=== PATIENT | female | born 1985 | race Caucasian/White ===

== ENCOUNTER → 2021-01-22 15:28 | Outpatient (CLI) | payer OTHER, SELFPAY ==
[2021-01-22 16:51] LABS: Add Manual Diff / Slide Review NO; Basophils Absolute Auto 0 /uL (0-100); Basophils Percent Auto 0.4 % (0-2); Eosinophils Absolute Auto 200 /uL (0-450); Eosinophils Percent Auto 1.9 % (2-4); Hematocrit 35.1 % (36-46); Lymphocytes Absolute Auto 2700 /uL (1100-4500); Lymphocytes Percent Auto 30.6 % (25-40); Mean Corpuscular HGB Conc 34.2 % (30-36); Mean Corpuscular Hemoglobin 30.2 PG (26-34); Mean Corpuscular Volume 88.4 fL (80-100); Monocytes Absolute Auto 600 /uL (0-900); Monocytes Percent Auto 6.6 % (3-14); Neutrophils Absolute Auto 5300 /uL (1500-7000); Neutrophils Percent Auto 60.5 % (50-75); Platelet Count 210 X10^3/uL (150-400); Red Blood Cell Count 3.97 X10^6/uL (4.0-5.2); Red Cell Distribution Width 12.9 % (11.6-14.8); White Blood Cell Count 8.8 X10^3/uL (4.5-11.0)
[2021-01-22 17:00] LABS: Appearance Urine UA CLEAR; Bilirubin Urine UA NEGATIVE (NEGATIVE); Color Urine UA YELLOW; Glucose Urine UA NEGATIVE (Negative); Ketones Urine UA NEGATIVE (NEGATIVE); Leukocyte Esterase Urine UA NEGATIVE (NEGATIVE); Nitrite Urine UA NEGATIVE (Negative); Occult Blood Urine UA NEGATIVE (Negative); Protein Urine UA NEGATIVE (Negative); Urobilinogen Urine UA 0.2 E.U./dL (0.2)
[2021-01-22 17:05] LABS: pH Urine UA 6.5 (4.5-8.0)
[2021-01-22 17:21] LABS: Hemoglobin A1C% w Est Avg Glu 5.2 % (4.0-6.0)
[2021-01-23 06:39] LABS: RPR Screen Non Reactive (Non Reactive)
[2021-01-23 12:36] LABS: Varicella IgG Antibody 1234 index (Immune >165)
[2021-01-24 15:57] LABS: Hepatitis B Surface Antigen NEGATIVE s/c (NEGATIVE); Rubella Antibody IgG 24.9 IU/mL (>15)
[2021-01-24 16:14] LABS: HIV 1 & 2 Ab/Ag 4th Gen Combo NEGATIVE (NEGATIVE); Hep C Virus Ab w/Reflex Quant NEGATIVE s/c (NEGATIVE)
== END ==
PROVIDERS: Referring Provider Obstetrics & Gynecology; Visit Provider Obstetrics & Gynecology
DX: Z34.81 Encounter for supervision of other normal pregnancy, first trimester (principal); Z86.32 Personal history of gestational diabetes
CPT/HCPCS: 36415; 80055; 81003; 83036; 86787; 86803; 86850; 86900; 86901; 87086; 87389

== ENCOUNTER → 2021-03-08 11:01 | Outpatient (CLI) | payer OTHER, SELFPAY ==
[2021-03-08 12:31] LABS: Add Manual Diff / Slide Review NO; Aspartate Aminotransferase 24 IU/L (14-36); Basophils Absolute Auto 0 /uL (0-100); Basophils Percent Auto 0.7 % (0-2); Eosinophils Absolute Auto 100 /uL (0-450); Eosinophils Percent Auto 1.9 % (2-4); Estimated Glomerular Filt Rate > 60.0 mL/min (>60); Hematocrit 32.8 % (36-46); Hemoglobin 11.5 g/dL (12.0-16.0); Lactate Dehydrogenase 418 U/L (313-618); Lymphocytes Absolute Auto 2400 /uL (1100-4500); Lymphocytes Percent Auto 37.2 % (25-40); Mean Corpuscular Hemoglobin 30.9 PG (26-34); Mean Corpuscular Volume 88.3 fL (80-100); Monocytes Absolute Auto 500 /uL (0-900); Monocytes Percent Auto 8.1 % (3-14); Neutrophils Absolute Auto 3400 /uL (1500-7000); Neutrophils Percent Auto 52.1 % (50-75); Platelet Count 181 X10^3/uL (150-400); Red Blood Cell Count 3.72 X10^6/uL (4.0-5.2); Uric Acid 2.5 mg/dL (2.5-6.2); White Blood Cell Count 6.5 X10^3/uL (4.5-11.0)
[2021-03-08 16:43] LABS: Protein (Total) Urine Random 13 mg/dL (0-12); Protein Creatinine Ratio Urine 0.61 GRAM/24H
[2021-03-11 23:27] LABS: AFP, Serum 43.9 ng/mL (.); Calc Gestational Age Ultrasound (.); Estriol, Free 1.33 ng/mL (.); Inhibin A, MoM See interpretation. (.); Maternal Ethnicity Caucasian (.); Maternal Weight 145 lbs (.); Number of Fetuses No (.); OSBR Risk 1 IN 10000 (.); Results Report (.); Test Results See interpretation. (.); hCG, MoM See interpretation. (.); hCG, Serum 31928 mIU/mL (.)
== END ==
PROVIDERS: Referring Provider Obstetrics & Gynecology; Visit Provider Obstetrics & Gynecology
DX: Z34.82 Encounter for supervision of other normal pregnancy, second trimester (principal); Z87.59 Personal history of other complications of pregnancy, childbirth and the puerperium; Z3A.16 16 weeks gestation of pregnancy
CPT/HCPCS: 36415; 82105; 82565; 82570; 82677; 83615; 84156; 84450; 84550; 84702; 85025; 86336

== ENCOUNTER → 2021-04-16 10:24 | Outpatient (CLI) | payer OTHER, SELFPAY ==
--- NOTE | 2021-04-16 10:25 | DI.US.S_ITS ---
PROCEDURE: US OB >= 14 WEEKS FETUS INDICATIONS: ANATOMY OUTSIDE/PRIOR DATING DATA: First dating scan (date and location): 01/22/2021. Estimated date of delivery (WENDY) from first dating scan: 08/18/2021. The calculations are made using the ultrasound WENDY of 08/18/2021. TECHNIQUE: Real-time scanning was performed of the fetus, with image documentation and biometric measurements. COMPARISON: [facility], , OB <= 14 WEEKS FETUS, 01/22/2021, 16:14. [facility], , US OB <= 14 WEEKS FETUS, 02/21/2021, 15:21. FINDINGS: General: A single living intrauterine gestation is present. Presentation: Vertex. Placenta: Placental position is posterior , without previa. Amniotic fluid index: 13.9 cm, normal range is 5-24 cm. heart rate: 147 beats per minute. Maternal cervical canal: 5.3 cm long. Normal lower limit is 2.5 cm. biometrics: Biparietal diameter: 22 weeks Head circumference: 22 weeks Abdominal circumference: 21 weeks 4 days Femur length: 21 weeks 2 days Clinically estimated gestational age: 22 weeks 2 days Composite gestational age from present scan: 21 weeks 5 days Estimated weight and percentile: 432 g; 14 percentile Anatomic survey: Neuro: Ventricles are non-dilated at less than 10 mm. Cisterna magna is normal at 3-11 mm. Cerebellum is normal in size and morphology. Possible lemon sign of the skull which has a slight appearance of and indentation along the frontal bones Nuchal skin fold: Normal at less than 6 mm between 14-21 weeks gestational age. Face: Nose and lips, facial profile are normal. Spine: No evidence for spina bifida. Heart: 4-chambered heart is present, with normal ventricular outflow tracts. Diaphragm: Diaphragm is intact. Stomach: Left-sided stomach is present. Kidneys: No hydronephrosis. Normal is less than 5 mm in 2nd trimester, less than 7 mm in 3rd trimester. Cord: 3-vessel cord has orthotopic insertion. Bladder: Normal in size. Extremities: All 4 extremities identified. IMPRESSION: 1. Single living IUP redemonstrated and interval growth is lower limits of normal. 2. Possible lemon sign of the skull, which is associated with congenital anomaly such as Chiari malformation or spina bifida which are not present. Recommend a short-term follow-up examination. 3. Anatomic survey otherwise is normal. We strive to produce accurate, complete, and clear reports of imaging services. To assist us in improving patient care, this report was composed using standard report templates and voice recognition software. Therefore, it may contain abnormal punctuation, insertions and/or omissions. Occasional wrong-word or sound-alike substitutions may occur. Though we review the report and make efforts to correct it, we do recommend that the report be read carefully in proper context to recognize any text inaccuracies. Dictated by: Aron Jeronimo [facility] Interpreted: Fanny Vincent MD on 04/16/2021 at 11:31 Transcribed by: DELANEY on 04/16/2021 at 11:40 Approved by: Fanny Vincent M.D. on 04/16/2021 at 12:09
== END ==
PROVIDERS: Referring Provider Obstetrics & Gynecology; Visit Provider Obstetrics & Gynecology
DX: Z34.82 Encounter for supervision of other normal pregnancy, second trimester (principal); Z3A.21 21 weeks gestation of pregnancy
CPT/HCPCS: 76811

== ENCOUNTER → 2021-05-09 10:52 | Outpatient (CLI) | payer OTHER, SELFPAY ==
[2021-05-09 12:53] LABS: Hematocrit 32.4 % (36-46); Hemoglobin 11.3 g/dL (12.0-16.0)
[2021-05-09 13:31] LABS: GTT (PREG) 1 Hour PP 50gm Dose 180 mg/dL (76-139)
== END ==
PROVIDERS: Referring Provider Obstetrics & Gynecology; Visit Provider Obstetrics & Gynecology
DX: Z34.82 Encounter for supervision of other normal pregnancy, second trimester (principal); Z3A.25 25 weeks gestation of pregnancy
CPT/HCPCS: 36415; 82950; 85014; 85018; 86850

== ENCOUNTER → 2021-05-15 10:07 | Outpatient (CLI) | payer OTHER, SELFPAY ==
[2021-05-15 11:09] LABS: Collection Time Urine 24 Hours; Protein (Total) Urine Random 13 mg/dL (0-12); Total Protein 24 Hour Urine 728 mg/day (42-225); Total Volume Urine 5600 mL
== END ==
PROVIDERS: Referring Provider Obstetrics & Gynecology; Visit Provider Obstetrics & Gynecology
DX: Z87.59 Personal history of other complications of pregnancy, childbirth and the puerperium (principal)
CPT/HCPCS: 84156

== ENCOUNTER → 2021-07-30 17:26 | Outpatient (CLI) | payer OTHER, SELFPAY ==
[2021-07-31 13:53] LABS: Strep Grp B PCR NEG for Grp B Strep
== END ==
PROVIDERS: Visit Provider Obstetrics & Gynecology
DX: Z36.85 Encounter for antenatal screening for Streptococcus B (principal); Z3A.37 37 weeks gestation of pregnancy
CPT/HCPCS: 87653

== ENCOUNTER 2021-08-09 19:32 | Inpatient (IN) | payer OTHER, SELFPAY ==
[2021-08-09 20:25] LABS: Add Manual Diff / Slide Review NO; Basophils Absolute Auto 0 /uL (0-100); Basophils Percent Auto 0.6 % (0-2); Eosinophils Absolute Auto 100 /uL (0-450); Eosinophils Percent Auto 0.7 % (2-4); Hematocrit 34.5 % (36-46); Hemoglobin 12.1 g/dL (12.0-16.0); Lymphocytes Absolute Auto 1600 /uL (1100-4500); Lymphocytes Percent Auto 21.1 % (25-40); Mean Corpuscular HGB Conc 35.2 % (30-36); Mean Corpuscular Volume 88.2 fL (80-100); Monocytes Absolute Auto 600 /uL (0-900); Neutrophils Absolute Auto 5400 /uL (1500-7000); Neutrophils Percent Auto 69.6 % (50-75); Platelet Count 124 X10^3/uL (150-400); Red Blood Cell Count 3.91 X10^6/uL (4.0-5.2); White Blood Cell Count 7.7 X10^3/uL (4.5-11.0)
[2021-08-09] MEDS: LACTATED RINGERS 1,000 ML 100 ML IV (21:00)
[2021-08-09] MEDS: OXYTOCIN PREMIX 30 UNIT/500 ML PLAST..BAG IV (21:02)
--- NOTE | 2021-08-09 21:03 | PM.OBHP.1 ---
OB HPI Date/Time Date of admission: 08/09/21 Date Patient Seen: 08/09/21 Time Patient Seen: 21:03 History of Present Condition Chief complaint: Induction : 6 Para: 2 Estimated Date of Delivery: 08/18/21 Estimated Gestational Age (weeks): 38 Narrative: Marie Saldivar is a 35 year old female admitted for induction for history of rapid labor Indications Indication for induction OB: gestational HTN/pre-eclampsia, gestational diabetes and history of rapid labor History of Present care: good care, initiated at week # (10), number of visits (9) and pounds weight gain (37) Dating criteria: LMP confirmed by 1st trimester US Ultrasounds: abnormal US findings Abnormal ultrasound findings: Possible lemon sign, follow-up by Maternal Medicine no cranial abnormalities Obstetrical complications: gestational diabetes (Diet-controlled) and gestational hypertension Medical complications: none Preadmission Labs Blood type: B (-) negative -: Antibody screen: negative, GBS status: negative, HBsAG: negative, HIV: negative and RPR/VDLR: negative -: Chlamydia screen: not detected and Gonorrhea screen: not detected -: Rubella: immune and Varicella: immune HCAB: negative Quad screen: Normal 1 hr GTT: 180 Narrative: Patient unable to do 3 hour glucose tolerance test monitored blood sugars without need for insulin Prior (ies) History: 12/30/15 39 12 6 lb 5 oz [facility] - full [place], [place] 20 mos. pre-eclampsia gestational diabetesBanks 01/05/18 37.5 8 6 lb 8 oz [facility] full [facility] 30 mos. gestational diabetes pre-eclampsiaDrew Evaluation Evaluation Baseline heart rate: 140 Variability: Moderate (11-25) monitor accelerations: Present Monitor Decelerations: Absent Category of Tracing: Reactive Status: Category l Dilation (cm): 3 Effacement (%): 80 station: -2 [facility] Medical History (Updated 08/06/21 @ 11:24 by Abigail Stewart MD) Anxiety (~2011) History of palpitations (~2015) History of pre-eclampsia History of recurrent miscarriages (~2015) Lipoma of flank (~2017) OCD (obsessive compulsive disorder) (~2011) Positive GBS test Pre-eclampsia (~2015) Surgical History (Updated 01/21/21 @ 23:07 by Margie Lawson) History of ear surgery (~2001) [place] teeth extracted Family History (Updated 01/18/21 @ 12:51 by Breanna Dodson RN) Mother Breast cancer Father Hypertension Anemia Grandmother No problems noted. Grandfather Mitral valve disease, rheumatic Grandmother Hypertension TIA (transient ischemic attack) Grandfather Diabetes mellitus Complication of cardiac bypass Hypertension Hyperlipidemia Sister Wilms' tumor Social History marital status: number of children: 2 household members: spouse and children lives independently: Yes caregiver/support person: No housing: house pets and animals: Yes (1 dog.) education level: college (Bachelors in Nursing.) occupational status: employed ([employer] current occupational exposures/hazards: No special aimee needs: No seatbelt use: always do you feel safe at home: Yes Smoking Status: Never smoker second hand exposure: No alcohol intake: never (Pr) substance use type: does not use during the past year weight has: remained stable well-balanced diet: daily or most days daily servings fruits/ve-4 caffeine: No (Quit w . (used to drink Diet Coke)) Type(s) of exercise: walking and running frequency: daily (less now that she is feeling sick. ) duration: 30-45 minutes/day Meds Home Medications and Allergies Home Medications Medication Instructions Recorded Confirmed Type magnesium 250 mg tablet 350 mg PO DAILY tab 01/18/21 08/06/21 History prenat.vits,marry,[id number] 1 tab PO DAILY 01/18/21 08/06/21 History pyridoxine (vitamin B6) 50 mg 50 mg PO BID 01/18/21 08/06/21 History tablet progesterone micronized 100 mg 100 mg VAGINAL TID #84 cap 01/28/21 08/06/21 Rx capsule fluconazole 150 mg tablet 150 mg PO ONCE #1 tab 02/21/21 08/06/21 Rx (Diflucan) sertraline 100 mg tablet 100 mg PO DAILY #30 tab 06/03/21 08/06/21 Rx Allergies Allergy/AdvReac Type Severity Reaction Status Date / Time Latex, Natural Rubber Allergy Mild Red, itchy Verified 08/06/21 11:05 skin rash Review of Systems Review of Systems Narrative: Good movement. No leakage of fluid. No vaginal bleeding. No headaches, scotomata, epigastric pain. OB Exam Narrative Exam Narrative: HEENT exam within normal limits. Lungs are clear to auscultation percussion. Heart is regular rate and rhythm no S3-S4 murmurs. Abdomen is gravid. Fetus is vertex. Extremities without edema and nontender. Objective Labs Result Diagrams: 08/09/21 20:05 Labs: Laboratory Results - last 24 hr 08/09/21 20:05 WBC 7.7 RBC 3.91 L Hgb 12.1 Hct 34.5 L MCV 88.2 MCH 31.0 MCHC 35.2 RDW 13.0 Plt Count 124 L Neut % (Auto) 69.6 Lymph % (Auto) 21.1 L [place] % (Auto) 8.0 Eos % (Auto) 0.7 L Baso % (Auto) 0.6 Neut # (Auto) 5400 Lymph # (Auto) 1600 [place] # (Auto) 600 Eos # (Auto) 100 Baso # (Auto) 0 Assessment and Plan Assessment and Plan Assessment and Plan narrative: Patient admitted for induction for history of fast labors, gestational diabetes, gestational hypertension Time Spent with Patient Total time spent with greater than 50% in coordination of care (as documented) at patient's floor/unit and/or counseling patient:: less than 15 minutes
[2021-08-09 21:09] LABS: COVID19 -Nasal RAPID Negative (Negative)
[2021-08-09 21:53] VITALS: BP 131/79
[2021-08-10] MEDS: LACTATED RINGERS 1,000 ML 100 ML IV (00:42)
[2021-08-10] MEDS: FENT 2MCG/ML BUPIV 0.125% EPI 200 MCG/100 ML PLAST..BAG 6 MCG EPIDURAL (01:00)
--- NOTE | 2021-08-10 01:10 | PM.AN.REGBLK ---
Regional Block Pre-procedure Procedure: Continuous Lumbar Epidural for L&D Attending OB provider: Abigail Stewart PMH/ROS narrative: term induction, no complications. Hx of preeclampsia with previous. ASA Class: II Labs: Hct 34.5 % (36-46) L 08/09/21 20:05 Plt Count 124 X10^3/uL (150-400) L 08/09/21 20:05 Medications: Current Medications Generic Name Dose Route Start Last Admin Trade Name Freq PRN Reason Stop Dose Admin Calcium Carbonate 1,000 mg 08/09/21 19:40 Calcium Carbonate 500 Mg Tab PO Q2HR PRN Dyspepsia Carboprost Tromethamine 250 mcg 08/09/21 19:40 Carboprost 250 Mcg/Ml Ampul IM Q90M PRN Bleeding Diphenhydramine HCl 25 mg 08/10/21 00:41 Diphenhydramine 50 Mg/Ml Vial IV Q10M PRN Pruritis Fentanyl 100 mcg 08/09/21 19:40 Fentanyl 100 Mcg/2 Ml Inj IV Q1H PRN Pain, Severe (7-10) Lactated Ringer's 1,000 mls @ 100 mls/hr 08/09/21 19:45 08/10/21 00:42 Lactated Ringers IV 100 mls/hr CONT DEONDRE Administration Oxytocin/Lactated Ringer's 30 unit in 500 mls @ 200 mls/hr 08/09/21 19:40 Oxytocin Premix IV CONT PRN Bleeding Protocol Oxytocin/Lactated Ringer's 30 unit in 500 mls @ 3 mls/hr 08/09/21 19:45 08/09/21 21:02 Oxytocin Premix IV 3 milliunit/min TITRATE DEONDRE 3 mls/hr Administration Protocol 3 MILLIUNIT/MIN Tranexamic Acid 1,000 mg/ 100 mls @ 200 mls/hr 08/09/21 19:40 Sodium Chloride IV NOW PRN Bleeding FENT 2MCG/ML BUPIV 0.125% EPI 200 mcg in 100 mls @ 6 mls/hr 08/10/21 00:45 Fentanyl/Bupiv/Ns 2mcg/Ml - 0.125% EPIDURAL CONT DEONDRE Methylergonovine Maleate 0.2 mg 08/09/21 19:40 Methylergonovine 0.2 Mg Tablet PO Q6HR PRN Heavy Bleeding Methylergonovine Maleate 0.2 mg 08/09/21 19:40 Methylergonovine 0.2 Mg/Ml Vial IM NOW PRN Bleeding Metoclopramide HCl 10 mg 08/09/21 19:40 Metoclopramide 10 Mg/2 Ml Inj IV NOW PRN Nausea And Vomiting Misoprostol 1,000 mcg 08/09/21 19:40 Misoprostol 200 Mcg Tablet MI NOW PRN Bleeding Misoprostol 400 mcg 08/09/21 19:40 Misoprostol 200 Mcg Tablet SL NOW PRN Bleeding Misoprostol 800 mcg 08/09/21 19:40 Misoprostol 200 Mcg Tablet MI NOW PRN Bleeding Nalbuphine HCl 2.5 mg 08/10/21 00:41 Nalbuphine 20 Mg/Ml Ampul IV Q10M PRN Pruritis Naloxone HCl 0.2 mg 08/09/21 19:40 Naloxone 0.4 Mg/Ml Vial IV Q2MIN PRN Opiate Reversal Ondansetron HCl 4 mg 08/09/21 19:40 Ondansetron 4 Mg/2 Ml Inj IV Q4HR PRN Nausea And Vomiting Oxytocin 10 unit 08/09/21 19:40 Oxytocin 10 Unit/Ml Vial IM NOW PRN Bleeding Sertraline HCl 100 mg 08/10/21 09:00 Sertraline 50 Mg Tablet PO 08/10/21 09:01 BEDTIME ONE Allergies: Allergies Allergy/AdvReac Type Severity Reaction Status Date / Time Latex, Natural Rubber Allergy Mild Red, itchy Verified 08/06/21 11:05 skin rash Procedure Insertion date: 08/10/21 Insertion time: 00:55 Prep/Local: betadine x3 and 1% lidocaine Interspace: L3-4 Patient position: sitting Needle: 18 gauge Hustead (CSE: 27g Pencan through Hustead, clear CSF, 0.5mL 0.25% bupiv (lower dose d/t h/o hypotension with previous CSE)) Loss of resistance with: saline ALTAGRACIA at (cm): 5 Catheter placed at SKIN (cm): 10 Catheter in SPACE (cm): 5 Insertion: No CSF, No Blood, No Paresthesia with insertion, No Paresthesia with injection and No Test dose reaction Initial Medications TEST DOSE time: 00:57 TEST DOSE: 1.5% lidocaine with epinephrine 1:200k (mL): 3 BOLUS DOSE time: 01:13 BOLUS DOSE (mL): 5 BOLUS DOSE med: other (infusate) Infusion INFUSION: 0.125% bupivacaine and with fentanyl 2 mcg/mL Initial rate (mL/hr): 8 Subsequent interventions: Post-procedure Anesthesia time START: 00:46 Anesthesia time END: 06:19 Post-procedure Anesthesia Assessment: Yes CV function: HR/BP stable, Yes Resp function: RR/sat/airway adequate, Yes Mental status appropriate and No Anesthesia complications
--- NOTE | 2021-08-10 06:47 | PM.OBPRVD ---
Labor & Delivery Delivery date: 08/10/21 Intrapartal Events: None Induction method: per pitocin protocol Delivery monitor: external FHT and external uterine Route of delivery: L&D Laceration Description: Perineal - 1st Degree Delivery repair: chromic (3 0) Estimated blood loss (mL): 100 Anesthesia Type: Epidural Narrative: Patient arrived on Labor and delivery for induction for history of fast labor, diet-controlled gestational diabetes, gestational hypertension. She was begun on Pitocin. She received an epidural catheter for pain control. She had spontaneous rupture membranes for clear fluid. She delivered spontaneously, over an intact perineum a viable male infant was placed on maternal abdomen. Baby had a tight nuchal cord. After 1 minute the cord was clamped, cut, and cord bloods obtained. The placenta delivered spontaneously, intact, with 3 vessels. There were no cervical or vaginal tears. A midline first-degree perineal tear was repaired with 3 0 chromic suture. Estimated blood loss 100 cc. Both infant mother doing well. Baby 1: Infant gender: Male Presentation: vertex Position: Right Occiput Anterior Placenta delivery description: Spontaneous Cord Vessel Description: 3 Vessels, Nuchal Cord and Tight score (1 min): 8 score (5 min): 9 Plan for aftercare: Routine care
[2021-08-10] MEDS: LANOLIN OINT 7 GM 1 APPLIC TOP (10:40)
[2021-08-10] MEDS: ACETAMINOPHEN 325 MG TABLET 650 MG PO (10:43)
[2021-08-10] MEDS: IBUPROFEN 600 MG TABLET PO (10:43)
[2021-08-10] MEDS: SERTRALINE 50 MG TABLET 100 MG PO (10:48)
[2021-08-10] MEDS: RHO(D) IMMUNE GLOBULIN 1,500 UNIT SYRINGE 1500 UNIT IM (15:42)
--- NOTE | 2021-08-10 17:39 | PM.OBDS.1 ---
Discharge Providers Provider Date of admission: 08/09/21 19:32 Discharge Date: 08/10/21 Primary care physician: Doctor Clay MD Consults: 08/11/21 06:45 Consult to Fire Regulator Routine Comment: Discharge provider: Fariba Morgan MD Summary Hospital Course Date Patient Seen: 08/10/21 Time Patient Seen: 17:39 Diagnoses: Vaginal delivery Hospital Course: Patient was admitted to Labor and delivery for induction for history of fast labors, gestational diabetes, diet controlled, hypertension. She was started on Pitocin. She was given an epidural for pain control. She had a spontaneous vaginal delivery of a viable male . She feels comfortable with . She is urinating and ambulating well. She denies any headaches, scotomata, epigastric pain. Peripartum Data Laceration Description: Perineal - 1st Degree Procedures: Pitocin induction, epidural catheter, spontaneous vaginal delivery with repair of first-degree perineal tear complications: none [place] 1: Gender: Male Disposition of : home Discharge Diagnosis (1) Vaginal delivery: Status: Acute Status at Discharge Cognitive/behavioral status at discharge: oriented Functional status at discharge: independent ambulation Overall status at discharge: patient is progressing back to baseline Time Spent with Patient Time attestation: Total time spent providing and/or coordinating discharge services: Time spent: Less than 30 minutes Objective Labs Result Diagrams: 08/09/21 20:05 Labs: Laboratory Results - last 24 hr 08/09/21 08/09/21 08/09/21 20:05 20:05 20:05 WBC 7.7 RBC 3.91 L Hgb 12.1 Hct 34.5 L MCV 88.2 MCH 31.0 MCHC 35.2 RDW 13.0 Plt Count 124 L Neut % (Auto) 69.6 Lymph % (Auto) 21.1 L [place] % (Auto) 8.0 Eos % (Auto) 0.7 L Baso % (Auto) 0.6 Neut # (Auto) 5400 Lymph # (Auto) 1600 [place] # (Auto) 600 Eos # (Auto) 100 Baso # (Auto) 0 SARS-CoV-2 (PCR) Negative Blood Type B Negative Antibody Screen Negative Exam Vital Signs (past 8 hours): Blood pressure 120/69, pulse 72, temperature 99.4 Narrative Exam Narrative: Abdomen is soft, nontender. Uterus is firm, at U, nontender. Mild lochia. Extremities without edema and nontender. Patient is Rh negative and baby Rh positive, she did receive RhoGAM. She is rubella immune, she received Tdap in the 3rd trimester. Discharge Plan Discharge Plan Patient Disposition: Home Discharge orders & Medications Prescriptions: Continued sertraline 100 mg tablet 100 mg PO DAILY Qty: 30 5RF magnesium 250 mg tablet 350 mg PO DAILY 0RF Label Comments: Actually takes Magnesium CALM powder, 350 mg in water, BID. prenat.vits,marry,[id number] Tablet 1 tab PO DAILY 0RF Discontinued progesterone micronized 100 mg capsule 100 mg vaginal TID Qty: 84 2RF pyridoxine (vitamin B6) 50 mg tablet 50 mg PO BID 0RF fluconazole [Diflucan] 150 mg tablet 150 mg PO ONCE Qty: 1 2RF Rx Instructions: as a single dose Follow up/Referrals: Fariba Morgan MD [Physician] - Abigail Stewart MD [Physician] - 6 Weeks Doctor Williamson MD [Primary Care Provider] - Diet/Activity/Treatments Diet: Regular Activity: Vagina for 6 weeks Skin/Wound/Dressing Care Report to your healthcare provider any signs of infection, such as:: chills, fever and increased pain Discharge Data Primary Care Provider: Doctor Clay Attending Provider: Fariba Morgan
== END 2021-08-10 19:05 | disposition home or self-care (01) | DRG 807 ==
PROVIDERS: Obstetrics & Gynecology; Admitting Provider Specialist; Referring Provider Specialist; Visit Provider Specialist
DX: O24.420 Gestational diabetes mellitus in childbirth, diet controlled (principal); Z37.0 Single live birth; Z3A.38 38 weeks gestation of pregnancy; O13.4 Gestational [pregnancy-induced] hypertension without significant proteinuria, complicating childbirth; O70.0 First degree perineal laceration during delivery; O69.81X0 Labor and delivery complicated by cord around neck, without compression, not applicable or unspecified; Z20.822 Contact with and (suspected) exposure to COVID-19
CPT/HCPCS: 01967; 36415; 59050; 59400; 59409; 85025; 86850; 86900; 86901; 87635; C9803; G0378; G0379; J2590; J2790

== ENCOUNTER → 2023-02-06 12:31 | Outpatient (CLI) | payer OTHER, SELFPAY ==
[2023-02-06 13:56] LABS: HCG Quantitative /Beta subunit 471.1 mIU/mL
== END ==
PROVIDERS: PCP Obstetrics & Gynecology; Referring Provider Obstetrics & Gynecology; Visit Provider Obstetrics & Gynecology
DX: N96 Recurrent pregnancy loss (principal)
CPT/HCPCS: 36415; 84702

== ENCOUNTER → 2023-02-09 11:01 | Outpatient (CLI) | payer OTHER, SELFPAY ==
[2023-02-09 13:44] LABS: HCG Quantitative /Beta subunit 1524.4 mIU/mL
== END ==
PROVIDERS: Referring Provider Obstetrics & Gynecology; Visit Provider Obstetrics & Gynecology
DX: N96 Recurrent pregnancy loss (principal)
CPT/HCPCS: 36415; 84702

== ENCOUNTER → 2023-03-19 11:15 | Outpatient (CLI) | payer OTHER, SELFPAY ==
[2023-03-19 12:28] LABS: Miscellaneous to LabCorp NATERA KIT
[2023-03-19 12:47] LABS: Add Manual Diff / Slide Review NO; Basophils Absolute Auto 100 /uL (0-100); Basophils Percent Auto 0.8 % (0-2); Eosinophils Absolute Auto 100 /uL (0-450); Eosinophils Percent Auto 1.8 % (2-4); Hematocrit 35.7 % (36-46); Hemoglobin 12.3 g/dL (12.0-16.0); Lymphocytes Absolute Auto 2600 /uL (1100-4500); Mean Corpuscular HGB Conc 34.4 % (30-36); Mean Corpuscular Hemoglobin 30.4 PG (26-34); Mean Corpuscular Volume 88.5 fL (80-100); Monocytes Absolute Auto 500 /uL (0-900); Monocytes Percent Auto 7.7 % (3-14); Neutrophils Absolute Auto 3700 /uL (1500-7000); Neutrophils Percent Auto 52.7 % (50-75); Platelet Count 214 X10^3/uL (150-400); Red Blood Cell Count 4.03 X10^6/uL (4.0-5.2); Red Cell Distribution Width 12.9 % (11.6-14.8); White Blood Cell Count 6.9 X10^3/uL (4.5-11.0)
[2023-03-19 12:54] LABS: Hemoglobin A1C% w Est Avg Glu 5.5 % (4.0-6.0)
[2023-03-19 13:10] LABS: Alanine Aminotransferase 17 IU/L (<35); Aspartate Aminotransferase 26 IU/L (14-36); BUN Creatinine Ratio 12.8 (6-22); Blood Urea Nitrogen 6 mg/dL (7-17); Estimated Glomerular Filt Rate > 60 mL/min (>60); Uric Acid 2.4 mg/dL (2.5-6.2)
[2023-03-19 23:04] LABS: Urine N gonorrhoeae NOT DETECTED
[2023-03-19 23:06] LABS: Urine Chlamydia NOT DETECTED
[2023-03-20 10:22] LABS: RPR Screen Non Reactive (Non Reactive)
[2023-03-21 11:03] LABS: Varicella IgG Antibody 1179 index (Immune >165)
[2023-03-23 16:30] LABS: Hepatitis B Surface Antigen NEGATIVE s/c (NEGATIVE); Rubella Antibody IgG 22.4 IU/mL (>15)
[2023-03-23 16:51] LABS: HIV 1 & 2 Ab/Ag 4th Gen Combo NEGATIVE (NEGATIVE); Hep C Virus Ab w/Reflex Quant NEGATIVE s/c (NEGATIVE)
== END ==
PROVIDERS: PCP Family Medicine; Referring Provider Obstetrics & Gynecology; Visit Provider Obstetrics & Gynecology
DX: Z34.01 Encounter for supervision of normal first pregnancy, first trimester (principal); O09.521 Supervision of elderly multigravida, first trimester; Z86.32 Personal history of gestational diabetes; O09.299 Supervision of pregnancy with other poor reproductive or obstetric history, unspecified trimester; Z87.59 Personal history of other complications of pregnancy, childbirth and the puerperium; Z3A.10 10 weeks gestation of pregnancy; Z34.81 Encounter for supervision of other normal pregnancy, first trimester
CPT/HCPCS: 36415; 80055; 82565; 83036; 84450; 84460; 84520; 84550; 86787; 86803; 86850; 86900; 86901; 87086; 87147; 87389; 87491; 87591

== ENCOUNTER → 2023-04-28 10:41 | Outpatient (CLI) | payer OTHER, SELFPAY ==
[2023-05-01 21:40] LABS: AFP Value 34.9 ng/mL (.); Gest Age on Col Date 16.6 weeks (.); Insulin Dep Diabetes No (.); OSBR Risk 1IN 10000 (.); Results Report (.); Test Results *Screen Negative* (.)
== END ==
PROVIDERS: PCP Family Medicine; Referring Provider Obstetrics & Gynecology; Visit Provider Obstetrics & Gynecology
DX: Z34.82 Encounter for supervision of other normal pregnancy, second trimester (principal); Z3A.16 16 weeks gestation of pregnancy
CPT/HCPCS: 36415; 82105

== ENCOUNTER → 2023-06-01 10:13 | Outpatient (CLI) | payer OTHER, SELFPAY ==
--- NOTE | 2023-06-01 10:15 | DI.US.S_ITS ---
PROCEDURE: US OB >= 14 WEEKS FETUS INDICATIONS: 20 Week Anatomy Scan OUTSIDE/PRIOR DATING DATA: Last menstrual period (LMP): 01/02/2023. LMP-based estimated date of delivery (WENDY): 10/09/2023. First dating scan (date and location): 03/19/2023. Estimated date of delivery (WENDY) from first dating scan: 10/11/2023. The calculations are made using the clinical WENDY of 10/09/2023. TECHNIQUE: Real-time scanning was performed of the fetus, with image documentation and biometric measurements. Endovaginal scanning: Not performed COMPARISON: [facility], , OB >= 14 WEEKS FETUS, 04/14/2023, 9:09. FINDINGS: General: A single living intrauterine gestation is present. Presentation: Breech. Placenta: Placental position is posterior , without previa. Amniotic fluid index: 12.3 cm, normal range is 5-24 cm. Single deepest vertical pocket is 3.7 cm. heart rate: 157 beats per minute. Maternal cervical canal: 4.5 cm long. Normal lower limit is 2.5 cm. biometrics: Biparietal diameter: 4.8 cm, 20 weeks 3 days Head circumference: 18.4 cm, 20 weeks 5 days Abdominal circumference: 16.4 cm, 21 weeks 3 days Femur length: 3.3 cm, 20 weeks 3 days Clinically estimated gestational age: 21 weeks 3 days Composite gestational age from present scan: 20 weeks 5 days Estimated weight and percentile: 389 g, 22 percentile Anatomic survey: Neuro: Ventricles are non-dilated at less than 10 mm. Cisterna magna is normal at 3-11 mm. Cerebellum is normal in size and morphology. Nuchal skin fold: Normal at less than 6 mm between 14-21 weeks gestational age. Face: Nose and lips, facial profile are normal. Spine: No evidence for spina bifida. Heart: 4-chambered heart is present, with normal ventricular outflow tracts. Diaphragm: Diaphragm is intact. Stomach: Left-sided stomach is present. Kidneys: No hydronephrosis. Normal is less than 5 mm in 2nd trimester, less than 7 mm in 3rd trimester. Cord: 3-vessel cord has orthotopic insertion. Bladder: Normal in size. Extremities: All 4 extremities identified. IMPRESSION: Single living intrauterine at 21 weeks 3 days, WENDY of 10/09/2023. Normal anatomy survey. Estimated weight of 389 g, 22 percentile. We strive to produce accurate, complete, and clear reports of imaging services. To assist us in improving patient care, this report was composed using standard report templates and voice recognition software. Therefore, it may contain abnormal punctuation, insertions and/or omissions. Occasional wrong-word or sound-alike substitutions may occur. Though we review the report and make efforts to correct it, we do recommend that the report be read carefully in proper context to recognize any text inaccuracies. Dictated by: Tito Alvarez M.D. on 06/01/2023 at 12:37 Approved by: Tito Alvarez M.D. on 06/01/2023 at 12:40
== END ==
LOC: US 10:14
PROVIDERS: PCP Family Medicine; Referring Provider Obstetrics & Gynecology; Visit Provider Obstetrics & Gynecology
DX: Z34.82 Encounter for supervision of other normal pregnancy, second trimester (principal); Z3A.20 20 weeks gestation of pregnancy
CPT/HCPCS: 76811

== ENCOUNTER → 2023-07-08 09:46 | Outpatient (CLI) | payer OTHER, SELFPAY ==
[2023-07-08 12:27] LABS: Hematocrit 31.7 % (36-46)
[2023-07-08 12:38] LABS: GTT (PREG) 1 Hour PP 50gm Dose 161 mg/dL (76-139)
== END ==
LOC: LAB 09:46
PROVIDERS: PCP Family Medicine; Referring Provider Obstetrics & Gynecology; Visit Provider Obstetrics & Gynecology
DX: Z34.82 Encounter for supervision of other normal pregnancy, second trimester (principal); Z3A.26 26 weeks gestation of pregnancy
CPT/HCPCS: 36415; 82950; 85014; 85018; 86850

== ENCOUNTER → 2023-09-17 11:03 | Outpatient (CLI) | payer OTHER, SELFPAY ==
[2023-09-18 10:49] LABS: Strep Grp B PCR POS for Grp B Strep
== END ==
PROVIDERS: PCP Family Medicine; Visit Provider Obstetrics & Gynecology
DX: Z34.83 Encounter for supervision of other normal pregnancy, third trimester (principal); Z3A.36 36 weeks gestation of pregnancy
CPT/HCPCS: 87653

== ENCOUNTER 2023-10-02 07:10 | Inpatient (IN) | payer OTHER, SELFPAY ==
--- NOTE | 2023-10-02 07:38 | P.HPOB_ITS ---
OB HPI Date/Time Date of admission: 10/02/23 Date Patient Seen: 10/02/23 Time Patient Seen: 07:38 History of Present Condition Chief complaint: INDUCTION WENDY Calculator Estimated Delivery Date Method Current WG Current Estimate 10/09/23 LMP (Certain) 39w 0d Other Estimates 10/11/23 Ultrasound #1 38w 5d Estimated Gestational Age (weeks): 39 : 8 Para: 3 care: good care, initiated at week # (0), number of visits (0) and pounds weight gain (45) Dating criteria OB: LMP confirmed by 1st trimester US Ultrasounds: normal 1st trimester US and normal mid trimester US Obstetrical complications: other (Elevated 1 hr GTT) Medical complications OB: none Narrative: h/o RPL prior to first live Indications Indication for induction OB: history of rapid labor and other (AMA) Preadmission Labs Last OB Lab Results: Blood Type B Negative 03/19/23 11:20 Antibody Screen Negative 07/08/23 10:17 Hematocrit 31.7 % (36-46) L 07/08/23 10:17 Hemoglobin 11.0 g/dL (12.0-16.0) L 07/08/23 10:17 Hepatitis B Surface Antigen Negative s/c (NEGATIVE) 03/19/23 11 :20 Hepatitis C Antibody Negative s/c (NEGATIVE) 03/19/23 11:20 Rubella Antibody 22.4 IU/mL (>15) 03/19/23 11:20 Varicella-Zoster IgG Antibody 1179 index (Immune >165) 03/19/23 11:20 Glucose 1 Hour 161 mg/dL (76-139) H 07/08/23 10:17 Group B Streptococcus (PCR) Pos for grp b strep H 09/17/23 11:0 3 -: Chlamydia screen: negative, Gonorrhea screen: negative and Urine: negative -: PAP smear: Normal Genetic Screens: Cell-free DNA: Normal (Normal male) and Alpha-fetoprotein: Normal External Labs -: Urine: negative Prior (ies) Past Pregnancies Del. Date GA/Weeks Labor Lgth Wt Sex Route Outcome Anesthesia Place Delv Breastfeed Preg Comp Name 04/20/10 4-5 spontaneous 09/19/11 spontaneous 06/18/14 6 09/18/14 6 spontaneous 12/30/15 39 12 6 lb 5 oz Male vaginal live - full ter vidhya epidural [facility], [place] 20 mos. pre-eclampsia gestational diabetes [place] 01/05/18 37.5 8 6 lb 8 oz Male vaginal live - full term ep idural [facility] 30 mos. gestational diabetes pre-eclampsia Yang 08/10/21 38.6 9 7 lb 3 oz Male vaginal live - full ter m epidural [facility] Still going as of 02/12/23 none Marry Delivery Date: 09/19/11 Last Updated by: Breanna Dodson R.N. Had D & C to complete. Delivery Date: 06/18/14 Last Updated by: Breanna Dodson R.N. completed on its own Delivery Date: 09/18/14 Last Updated by: Breanna Dodson R.N. Completed on its own. Delivery Date: 12/30/15 Last Updated by: Breanna Dodson R.N. Diet-controlled. Induced for pre-eclampsia. BPs started rising at 38 wks. Episiotomy,3rd degree c repair, had 2 hematomas. Delivery Date: 01/05/18 Last Updated by: Breanna Dodson R.N. Diet-controlled GDM. Induced for pre-eclampsia. Evaluation Evaluation Baseline heart rate: 120 Variability: Moderate (11-25) monitor accelerations: Present Monitor Decelerations: Absent Contraction Frequency (minutes): 0 Status: Category l Dilation (cm): 3 Effacement (%): 80 station: -1 Position of cervix: anterior Consistency: soft [facility] Medical History (Updated 08/06/23 @ 10:21 by Fariba Morgan MD) Vaginal delivery (~08/10/21) History of pre-eclampsia Positive GBS test Anxiety (~2011) Lipoma of flank (~2017) History of palpitations (~2015) OCD (obsessive compulsive disorder) (~2011) Pre-eclampsia (~2015) Surgical History (Updated 01/21/21 @ 23:07 by Margie Lawson) History of ear surgery (~2001) [place] teeth extracted Family History (Updated 02/12/23 @ 11:06 by Yoselin Gonzalez RN) Mother Breast cancer Father Hypertension Anemia Grandmother Cancer Grandfather Mitral valve disease, rheumatic Grandmother Hypertension TIA (transient ischemic attack) Grandfather Diabetes mellitus Complication of cardiac bypass Hypertension Hyperlipidemia Sister Wilms' tumor Hepatitis C virus infection resolved after antiviral drug therapy Social History marital status: number of children: 3 household members: spouse and children lives independently: Yes caregiver/support person: Yes housing: house pets and animals: Yes (2 dogs) education level: college (Bachelors in Nursing.) occupational status: 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)) current occupational exposures/hazards: No special aimee needs: No travel history: recent (domestic only) seatbelt use: always helmet use: Yes water heater temp set < 120 deg: Yes working smoke detector in home: Yes fire extinguisher in home: No carbon monox detector in home: Yes firearms in home: Yes firearms unloaded and locked: Yes do you feel safe at home: Yes Smoking Status: Never smoker second hand exposure: No alcohol intake: never substance use type: does not use during the past year weight has: other (son is ~18 mo old, currently ~7 lb over pre-baby wt) well-balanced diet: daily or most days daily servings fruits/ve or more times/day caffeine: Yes (Diet Coke) Type(s) of exercise: walking and running frequency: 3-4 times per week (less now that she is feeling sick. ) duration: 30-45 minutes/day Meds Home Medications and Allergies Home Medications Medication Instructions Recorded Confirmed Type prenat.vits,marry,suh-pehm-hzups 1 tab PO DAILY 01/18/21 09/25/23 History sertraline 100 mg tablet 100 mg PO DAILY #90 tabs 11/17/22 09/25/23 Rx progesterone micronized 100 mg 100 mg vaginal TID #84 caps 02/05/23 09/25/23 Rx capsule Allergies Allergy/AdvReac Type Severity Reaction Status Date / Time Latex, Natural Rubber Allergy Mild Red, itchy Verified 09/25/23 10:56 skin rash OB Exam Narrative Exam Narrative: Generally: Patient is sitting up in bed, no acute distress Lungs: Clear to auscultation bilaterally Cardiovascular: Regular rate and rhythm Fundal height: 39 cm Estimated weight: 6-1/2-7 lbs Extremities: No edema Assessment and Plan Assessment and Plan Assessment and Plan narrative: Assessment: 37-year-old 8 para 3 at 39 weeks' gestation for induction of labor due to advanced maternal age and history of rapid labors GBS positive Plan: Group B strep prophylaxis Pitocin per protocol 2 Epidural prior to AROM Expected management to spontaneous vaginal delivery Time Spent with Patient Total time spent with greater than 50% in coordination of care (as documented) at patient's floor/unit and/or counseling patient:: 15-24 minutes
[2023-10-02 08:00] LABS: Add Manual Diff / Slide Review NO; Basophils Absolute Auto 100 /uL (0-100); Basophils Percent Auto 0.8 % (0-2); Eosinophils Absolute Auto 200 /uL (0-450); Eosinophils Percent Auto 2.3 % (2-4); Hematocrit 30.3 % (36-46); Hemoglobin 10.5 g/dL (12.0-16.0); Lymphocytes Absolute Auto 3100 /uL (1100-4500); Lymphocytes Percent Auto 33.6 % (25-40); Mean Corpuscular HGB Conc 34.6 % (30-36); Mean Corpuscular Hemoglobin 28.7 PG (26-34); Monocytes Absolute Auto 800 /uL (0-900); Monocytes Percent Auto 9.2 % (3-14); Neutrophils Absolute Auto 4900 /uL (1500-7000); Neutrophils Percent Auto 54.1 % (50-75); Platelet Count 198 X10^3/uL (150-400); Red Blood Cell Count 3.65 X10^6/uL (4.0-5.2); Red Cell Distribution Width 13.6 % (11.6-14.8); White Blood Cell Count 9.1 X10^3/uL (4.5-11.0)
[2023-10-02] MEDS: LACTATED RINGERS 1,000 ML 100 ML IV ×2 (08:15→12:10)
[2023-10-02] MEDS: AMPICILLIN 2,000 MG in SODIUM CHLORIDE 0.9% 100 ML 200 MG IV (08:15)
[2023-10-02 08:33] VITALS: BP 122/78
[2023-10-02] MEDS: OXYTOCIN PREMIX 30 UNIT/500 ML PLAST..BAG IV (09:24)
[2023-10-02] MEDS: AMPICILLIN 1,000 MG in SODIUM CHLORIDE 0.9% 100 ML 200 MG IV (12:09)
--- NOTE | 2023-10-02 12:14 | PM.AN.REGBLK ---
Regional Block Pre-procedure Procedure: Continuous Lumbar Epidural for L&D Attending OB provider: Abigail Stewart PMH/ROS narrative: term induction for h/o preeclampsia and AMA. No obstetric or medical complications. ASA Class: II Labs: Hct 30.3 % (36-46) L 10/02/23 07:38 Plt Count 198 X10^3/uL (150-400) 10/02/23 07:38 Medications: Current Medications Generic Name Dose Route Start Last Admin Trade Name Freq PRN Reason Stop Dose Admin Calcium Carbonate 1,000 mg 10/02/23 07:47 Calcium Carbonate 500 Mg Tab PO Q4HR PRN Dyspepsia Carboprost Tromethamine 250 mcg 10/02/23 07:47 Carboprost 250 Mcg/Ml Ampul IM Q90M PRN Bleeding Diphenhydramine HCl 25 mg 10/02/23 11:49 Diphenhydramine 50 Mg/Ml Vial IV Q10M PRN Pruritis Fentanyl 50 mcg 10/02/23 07:47 Fentanyl 100 Mcg/2 Ml Inj IV Q1H PRN Pain, Moderate (4-6) Oxytocin/Lactated Ringer's 30 unit in 500 mls @ 2 mls/hr 10/02/23 08:00 10/02/23 09:24 Oxytocin Premix IV 2 milliunit/min TITRATE DEONDRE 2 mls/hr Administration Protocol 2 MILLIUNIT/MIN Oxytocin/Lactated Ringer's 30 unit in 500 mls @ 200 mls/hr 10/02/23 07:47 Oxytocin Premix IV CONT PRN Bleeding Protocol Tranexamic Acid 1,000 mg/ 100 mls @ 600 mls/hr 10/02/23 07:47 Sodium Chloride IV NOW PRN Bleeding Ampicillin Sodium 1,000 mg/ 100 mls @ 200 mls/hr 10/02/23 12:00 10/02/23 12:09 Sodium Chloride IV 200 mls/hr Q4H DEONDRE Administration Lactated Ringer's 1,000 mls @ 100 mls/hr 10/02/23 08:00 10/02/23 12:10 Lactated Ringers IV 100 mls/hr CONT DEONDRE Administration FENT 2MCG/ML BUPIV 0.125% EPI 200 mcg in 100 mls @ 6 mls/hr 10/02/23 12:00 Fentanyl/Bupiv/Ns 2mcg/Ml - 0.125% EPIDURAL CONT DEONDRE Lidocaine HCl 20 ml 10/02/23 07:47 Lidocaine 1% 20 Ml INJ INTRA-OP PRN Post Delivery Methylergonovine Maleate 0.2 mg 10/02/23 07:47 Methylergonovine 0.2 Mg Tablet PO Q6HR PRN Heavy Bleeding Methylergonovine Maleate 0.2 mg 10/02/23 07:47 Methylergonovine 0.2 Mg/Ml Vial IM NOW PRN Bleeding Misoprostol 800 mcg 10/02/23 07:47 Misoprostol 200 Mcg Tablet SC NOW PRN Bleeding Misoprostol 400 mcg 10/02/23 07:47 Misoprostol 200 Mcg Tablet SL NOW PRN Bleeding Nalbuphine HCl 2.5 mg 10/02/23 11:49 Nalbuphine 20 Mg/Ml Ampul IV Q10M PRN Pruritis Naloxone HCl 0.2 mg 10/02/23 07:47 Naloxone 0.4 Mg/Ml Vial IV Q2MIN PRN Opiate Reversal Ondansetron HCl 4 mg 10/02/23 07:47 Ondansetron 4 Mg/2 Ml Inj IV Q4HR PRN Nausea And Vomiting Oxytocin 10 unit 10/02/23 07:47 Oxytocin 10 Unit/Ml Vial IM NOW PRN Bleeding Allergies: Allergies Allergy/AdvReac Type Severity Reaction Status Date / Time Latex, Natural Rubber Allergy Mild Red, itchy Verified 09/25/23 10:56 skin rash Procedure Insertion date: 10/02/23 Insertion time: 12:02 Prep/Local: betadine x3 and 1% lidocaine Interspace: L3-4 Patient position: sitting Needle: 18 gauge Optify (CSE: 27g Pencan through Hustead, clear CSF. 0.5mL 0.25% MPF bupiv) Loss of resistance with: saline ALTAGRACIA at (cm): 6 Catheter placed at SKIN (cm): 12 Catheter in SPACE (cm): 6 Insertion: No CSF, No Blood, No Paresthesia with insertion, No Paresthesia with injection and No Test dose reaction Initial Medications TEST DOSE time: 12:04 TEST DOSE: 1.5% lidocaine with epinephrine 1:200k (mL): 3 BOLUS DOSE time: 12:08 BOLUS DOSE (mL): 4 BOLUS DOSE med: other (infusate) Infusion INFUSION: 0.125% bupivacaine and with fentanyl 2 mcg/mL Initial rate (mL/hr): 8 Subsequent interventions: PCEA@8+4 1218 5mg ephedrine for symptomatic BP 90's/40's. Rapid resolution. Post-procedure Anesthesia date START: 10/02/23 Anesthesia time START: 11:55 Anesthesia date END: 10/02/23 Anesthesia time END: 16:22 Post-procedure Anesthesia Assessment: Yes CV function: HR/BP stable, Yes Resp function: RR/sat/airway adequate, Yes Post-op hydration adequate, Yes Pain control adequate, Yes Nausea & vomiting absent, Yes Temperature > 36 C, Yes Mental status appropriate and No Anesthesia complications
--- NOTE | 2023-10-02 13:10 | PM.OBPNLAB ---
Date/Time Date Patient Seen: 10/02/23 Time Patient Seen: 12:30 Pain Control Pain control: epidural Pelvic Exam Dilation (cm): 4 Effacement (%): 80 station: -1 Amniotic membrane status: Intact Contractions Contractions on admission: none Monitor mode: External Pitocin rate (mU/min): 10 Contraction frequency (min): 3 Contraction duration (min): 1 Contraction pattern: Regular Contraction intensity: Strong/Firm Status status: Category l Heart Rate Baseline: 125 Monitor Accelerations: Present Monitor Decelerations: Absent Monitor Variability: Moderate Assessment and Plan Assessment: active labor and induction ongoing Comments: AROM with copious clear fluid Expectant management to
--- NOTE | 2023-10-02 17:43 | PM.OBPRVD ---
Events: Labor Induction Labor & Delivery Delivery date: 10/02/23 Intrapartal Events: None Cervical ripening method: none Induction method: per pitocin protocol Delivery augmentation: rupture of membranes Delivery monitor: external FHT and external uterine Route of delivery: Episiotomy description: None L&D Laceration Description: None Quantitative Blood Loss: 200 Anesthesia Type: Epidural Complications: None Narrative: Patient complete and pushed for 8 minutes. At 4:11 p.m., a live male delivered spontaneously in the AOLNZO presentation, over an intact perineum. No nuchal cord. The remainder of the body delivered without difficulty and was placed on mom's abdomen. The cord was double clamped and cut after it stopped pulsing. Cord bloods were obtained. Pitocin was given in the IV fluids. The placenta delivered intact with a three-vessel cord at 4:20 p.m.. Fundus was massaged to firm. No lacerations. Apgars 9 at 1 minute and 9 at 5 minutes. weight 7 lb 8.8 oz. QBL: 200 cc. Epidural analgesia. . Mom and infant stable to recovery. Baby 1: gender: Male Presentation: vertex Position: Left Occiput Anterior Placenta delivery description: Spontaneous Cord Vessel Description: 3 Vessels and Clamped/Cut (After the cord stopped pulsing) score (1 min): 9 score (5 min): 9 weight: 7 lb 8.8 oz Plan for aftercare: Routine care
[2023-10-03 06:22] LABS: Hematocrit 29.7 % (36-46); Hemoglobin 10.4 g/dL (12.0-16.0)
--- NOTE | 2023-10-03 07:49 | P.PNOB_ITS ---
Subjective - OB Subjective Patient comments: no complaints, pain well controlled and tolerating diet baby status: doing well and nursing well feeding status: exclusively breast feeding Narrative: Pt resting comfortably in bed Date Patient Seen: 10/03/23 Interval history: 37yo PPD1 s/p of LBMI following term IOL, A1GDM, AMA, maternal h/o PIH. New intermittent mild range BP (high 146/78) overnight, non-sustained without associated ROSALES/visual changes. Objective Labs 10/03/23 06:07 Labs: Laboratory Results - last 24 hr 10/02/23 10/02/23 10/03/23 07:35 07:38 06:07 WBC 9.1 RBC 3.65 L Hgb 10.5 L 10.4 L Hct 30.3 L 29.7 L MCV 83.0 MCH 28.7 MCHC 34.6 RDW 13.6 Plt Count 198 Neut % (Auto) 54.1 Lymph % (Auto) 33.6 [place] % (Auto) 9.2 Eos % (Auto) 2.3 Baso % (Auto) 0.8 Neut # (Auto) 4900 Lymph # (Auto) 3100 [place] # (Auto) 800 Eos # (Auto) 200 Baso # (Auto) 100 Blood Type B Negative Antibody Screen Positive Antibody Identification Anti-D Assessment & Plan Plan day: 1 plan OB: routine care Time Spent With Patient Time: Total time spent is greater than 50% in coordination of care (as documented) at patient's floor/unit and/or counseling patient: Time with patient: 15-24 minutes
--- NOTE | 2023-10-03 08:00 | P.DS_ITS ---
Discharge Providers Provider Date of admission: 10/02/23 07:10 Discharge Date: 10/03/23 Primary care physician: Marychuy Gunn MD Consults: 10/02/23 07:47 Consult to Anesthesiology Urgent Comment: Consulting Provider: Anesthesiologist Reason for consultation: Epidural Has provider been notified: No 10/03/23 17:38 Consult to Stretching Press Operator Routine Comment: Discharge provider: Tegan Muñiz MD Summary Hospital Course Date Patient Seen: 10/03/23 Time Patient Seen: 08:04 Diagnoses: Term Advanced maternal age A1GDM h/o maternal PIH h/o recurrent loss Hospital Course: 37yo G8 now P404 admitted at term for scheduled IOL secondary to AMA, A1GDM with h/o precipitous/fast labors. Pt underwent uncomplicated pitocin augmentation, rapid progression to full dilation following AROM after adequate analgesia with epidural was established. Uncomplicated second and third stage. course c/b intermittent asymptomatic mild range BP with initiation of low-dose PO nifedipine 30mg ER on morning of PPD1. Pt discharged to home per request on PPD1 meeting all discharge milestones, declined bridge contraception at this time. Plan for one week f/u in office for BP check, 6wk 2h OGTT Peripartum Data Delivery Method: Natural Vaginal Laceration Description: None complications: other (intermittent mild range BP, asymptomatic ) [place] 1: Gender: Male Disposition of : home Discharge Diagnosis (1) History of pre-eclampsia: Status: Acute (2) History of gestational diabetes: Status: Acute (3) History of recurrent miscarriages: Status: Acute Status at Discharge Cognitive/behavioral status at discharge: oriented Functional status at discharge: independent ambulation Overall status at discharge: patient is back to baseline Time Spent with Patient Time attestation: Total time spent providing and/or coordinating discharge services: Time spent: Greater than 30 minutes Objective Labs 10/03/23 06:07 Labs: Laboratory Results - last 24 hr 10/02/23 10/02/23 10/03/23 07:35 07:38 06:07 WBC 9.1 RBC 3.65 L Hgb 10.5 L 10.4 L Hct 30.3 L 29.7 L MCV 83.0 MCH 28.7 MCHC 34.6 RDW 13.6 Plt Count 198 Neut % (Auto) 54.1 Lymph % (Auto) 33.6 [place] % (Auto) 9.2 Eos % (Auto) 2.3 Baso % (Auto) 0.8 Neut # (Auto) 4900 Lymph # (Auto) 3100 [place] # (Auto) 800 Eos # (Auto) 200 Baso # (Auto) 100 Blood Type B Negative Antibody Screen Positive Antibody Identification Anti-D Exam Vital Signs (past 8 hours): 138-146/78-68 HR 76-80 T 98.5 SpO2 99% RA Const General: cooperative, healthy appearing and comfortable [facility] Head: normal to inspection Neck Neck: normal visual inspection Chest Chest: normal inspection of the chest Resp Effort & Inspection: normal respiratory effort Cardio Pulses: normal peripheral pulses GI Inspection: normal to inspection Other: fundus firm << umb Other: deferred Skin General: no rashes or lesions noted Neuro General: patient alert, patient awake and patient oriented x3 Extrem General: normal to inspection Psych Appearance: grossly normal Mental Status: mental status grossly normal Speech and Movement: speech and movement normal Discharge Plan Discharge Plan Patient Disposition: Home Discharge orders & Medications Prescriptions: New acetaminophen 325 mg Tablet 650 mg PO Q6HR PRN (Reason: Pain, Mild (1-3)) Qty: 60 0RF ibuprofen 600 mg Tablet 600 mg PO Q6HR PRN (Reason: Pain, Mild (1-3)) Qty: 30 0RF nifedipine 30 mg tablet extended release 30 mg PO DAILY Qty: 14 0RF Continued sertraline 100 mg tablet 100 mg PO DAILY Qty: 90 0RF Rx Instructions: Please have PCP manage after this fill. Thank you marisol.vits,marry,[id number] Tablet 1 tab PO DAILY Discontinued progesterone micronized 100 mg capsule 100 mg vaginal TID Qty: 84 2RF Follow up/Referrals: Marychuy Gunn MD [Primary Care Provider] - Diet/Activity/Treatments Diet: Regular Skin/Wound/Dressing Care Report to your healthcare provider any signs of infection, such as:: chills, fever, increased pain and unusual drainage Visit Report/Discharge Packet Stand Alone Forms: Discharge: Care, Patient Portal/API, Stroke Signs & Symptoms Discharge Data Primary Care Provider: Marychuy Gunn Attending Provider: Abigail Stewart Admit Date/Time: 10/02/23 07:10
== END 2023-10-03 12:35 | disposition home or self-care (01) | DRG 807 ==
PROVIDERS: Admitting Provider Obstetrics & Gynecology; PCP Family Medicine; Referring Provider Obstetrics & Gynecology; Visit Provider Obstetrics & Gynecology
DX: O99.824 Streptococcus B carrier state complicating childbirth (principal); Z37.0 Single live birth; Z3A.39 39 weeks gestation of pregnancy
CPT/HCPCS: 36415; 59050; 85014; 85018; 85025; 86850; 86870; 86900; 86901; G0378; G0379; J0290; J2590